=== PATIENT | female | born 1950 | race African-American/Black ===

== ENCOUNTER 2016-08-03 13:58 | Emergency (ER) | payer MEDICARE, MEDICAID ==
--- NOTE | 2016-08-03 14:15 | ED Physician Chart ---
Chief Complaint/HPI - Patient Information Date Seen:: 08/03/16 Time Seen:: 14:00 Chief Complaint:: dyspnea History of Present Illness:: onset today of dyspnea; pt reportedly developed low Oxygen Saturations and thus was brought in by EMS for further evaluation; pt denies C/P, SOB, Abd pain, A/N/ V/D/C, fever, chills,congestion, cough, hemoptysis, neck pain, or H/As Vitals:: Vital Signs - 8 hr 08/03/16 08/03/16 14:01 14:09 Temp 98.6 F HR 80 RR 19 BP 125/72 125/72 O2 Sat % 93 Historian:: Patient, EMS, Medical Records Review:: Nurse's Note Reviewed, EMS run form Reviewed, Transfer documents Reviewed Review of Systems - Review of Systems General/Constitutional: Fever, Chills, No weight loss, Weakness, No diaphoresis , No edema, No loss of appetite Skin: No skin lesions, No rash, No bruising Head: Headache, No light-headedness Eyes: No loss of vision, No pain, No diplopia ENT: No earache, Nasal drainage, No sore throat, No tinnitus Neck: No neck pain, No swelling, No thyromegaly, No stiffness, No mass noted Cardio Vascular: Chest pain, Palpitations, No PND, No orthopnea, No edema Pulmonary: SOB, Cough, No sputum, No wheezing GI: No nausea, No vomiting, No diarrhea, No pain, No melena, No hematochezia, No constipation, No hematemesis G/U: No dysuria, No frequency, No hematuria Musculoskeletal: Bone or joint pain, No back pain, Muscle pain Endocrine: No polyuria, No polydipsia Psychiatric: Prior psych history, Depression, No anxiety, No suicidal ideation Hematopoietic: No bruising, No lymphadenopathy Allergic/Immuno: No urticaria, No angioedema Neurological: No syncope, No focal symptoms, No weakness, No paresthesia, No headache, No seizure, No dizziness, No confusion, No vertigo Past Medical History - Past Medical History Past Medical History: HTN, DM, CAD, Dyslipidemia, PUD/GERD, Seizures Family History: Heart disease, Diabetes Melitus, HTN Social History: Non Smoker, No Alcohol, No Drug Use, Single, Care Facility Surgical History: None Psychiatricy History: Depression, Bipolar Medication: Reviewed Family Medical History - Family Member Mother History Unknown: Yes Physical Exam - Physical Examination General/Constitutional: Awake, Well-developed, well-nourished, Alert, No distress, GCS 15, Non-toxic appearing, Ambulatory Head: Atraumatic Eyes: Lids, conjuctiva normal, PERRL, EOMI Skin: Nl inspection, No rash, No skin lesions, No ecchymosis, Well hydrated, No lymphadenopathy ENMT: External ears, nose nl, Nasal exam nl, Lips, teeth, gums nl Neck: Nontender, Full ROM w/o pain, No JVD, No nuchal rigidity, No bruit, No mass, No stridor Respiratory: Nl effort/Exclusion, No Wheeze/Rhonchi/Rales Other Respiratory comments:: Lungs: + Rhonchi Cardio Vascular: RRR, No murmur, gallop, rubs, NL S1 S2 GI: No tenderness/rebounding/guarding, No organomegaly, No hernia, Normal BS's, Nondistended, No mass/bruits, No McBurney tenderness : No CVA tenderness Extremities: No tenderness or effusion, Full ROM, normal strength in all extremities, No edema, Normal digits & nails Neuro/Psych: Alert/oriented, DTR's symmetric, Normal sensory exam, Normal motor strength, Judgement/insight normal, Mood normal, Normal gait, No focal deficits Misc: normal gait, Normal back, No paraspinal tenderness Labs/Radiology/EKG Results - Lab Results Results: Unremarkable - Radiology Results Results: CXR: Old RML Infiltrate - EKG Interpretations Rate & Rhythm: NSR; PRO [place]: LAD Comments:: non-specific st-t changes ED Septic Shock - . Is Septic Shock (SBP<90, OR Lactate>4 mmol\L) present?: No - <6hrs of presentation: Vital Signs: Vital Signs - 8 hr 08/03/16 08/03/16 14:01 14:09 Temp 98.6 F HR 80 RR 19 BP 125/72 125/72 O2 Sat % 93 Reassessment (Disposition) - Reassessment Reassessment Condition:: Improved - Diagnosis Diagnosis:: Pneumonia; Dyspnea-Resolved; Hypoxia-resolved - Aftercare/Follow up Instructions Aftercare/Follow-Up Instructions:: Counseled pt regarding lab results/diagnosis & need follow up, Refer to Discharge Instructions, Counseled pt & family regarding lab results/diagnosis & need follow up Notes:: pt refused to be admitted; pt chose to sign out AMA - Patient Disposition Discharge/Transfer:: Against Medical Advice (RTER prn if existing s/s reoccur and/or get worse and/or any other new s/s occur; Continue Antibiotics and all medications as prescribed by PMD; F/U with PMD today or prn; ACIS given for all above Dx; Refer to [employer] [facility]; RTER prn if concerned) ED Discharge Plan - Patient Disposition Admit/Discharge/Transfer: [facility] Condition at Disposition: Stable Instructions: Pneumonia, Adult, [id number]
[2016-08-03 14:41] VITALS: BP 125/72
[2016-08-03 14:50] LABS: % EOSINOPHILS 0.9 % (0.0-5.0); % LYMPHOCYTES 39.8 % (20.0-50.0); % MONOCYTES 14.2 % (2.0-10.0); % NEUTROPHILS 45.1 % (40.0-80.0); HEMATOCRIT 48.3 % (35.0-45.0); HEMOGLOBIN 15.2 gm/dL (11.7-16.1); MEAN CELL VOLUME 91.6 fl (81-100); MEAN CORPUSCULAR HEMOGLOBIN 28.7 pg (27.0-31.0); MEAN CORPUSCULAR HGB CONC 31.4 pg (28.0-36.0); MEAN PLATELET VOLUME 9.1 fl; NEUTROPHILE ABSOLUTE 3.1 Th/cmm (1.8-8.0); PLATELET COUNT 212 Th/cmm (150-400); RED BLOOD COUNT 5.28 Mil/cmm (3.80-5.20); RED CELL DISTRIBUTION WIDTH 15.6 % (11.5-20.0); WHITE BLOOD COUNT 6.9 Th/cmm (4.8-10.8)
[2016-08-03 14:55] LABS: INR 1.07 (0.5-1.4); PROTHROMBIN TIME (TEST) 11.1 SECONDS (9.5-11.5)
[2016-08-03 14:59] LABS: ALB/GLOB RATIO 0.8 (1.0-1.8); ALKALINE PHOSPHATASE 65 U/L (34-104); ANION GAP 6.8 (7.0-16.0); BILIRUBIN,TOTAL 0.5 mg/dL (0.3-1.0); BUN - UREA NITROGEN 29 mg/dL (7-25); BUN/CREATININE RATIO 26.4; CALCIUM SERUM 9.8 mg/dL (8.6-10.3); CARBON DIOXIDE 38.8 mEq/L (21.0-31.0); CHLORIDE 97 mEq/L (98-107); CHOLESTEROL 139 mg/dL (<200); CREATININE - SERUM 1.1 mg/dL (0.6-1.2); GLUCOSE 115 mg/dL (70-105); POTASSIUM SERUM 3.6 mEq/L (3.5-5.1); SGOT 25 U/L (13-39); SGPT/ALT 36 U/L (7-52); SODIUM SERUM 139 mEq/L (136-145); TRIGLYCERIDES 124 mg/dL (<150); TROP I 0.03 ng/mL (0.01-0.05)
[2016-08-03] MEDS ORDERED: Levofloxacin 500mg/100mL 500 MG/100 ML BAG IV ONE (16:29)
--- NOTE | 2016-08-04 10:17 | Diagnostic Imaging Report ---
Portable chest x-ray HISTORY: Pain The heart appears enlarged. No focal pulmonary processes. No hilar or mediastinal abnormalities. Diffuse degenerative changes are seen to the spine. IMPRESSION: 1. No acute pulmonary processes 2. Cardiomegaly
== END 2016-08-03 18:30 ==
LOC: ER 13:58
DX: J18.9 Pneumonia, unspecified organism (principal); R09.02 Hypoxemia; I10 Essential (primary) hypertension; E11.9 Type 2 diabetes mellitus without complications; I25.10 Atherosclerotic heart disease of native coronary artery without angina pectoris; K21.9 Gastro-esophageal reflux disease without esophagitis; E78.5 Hyperlipidemia, unspecified; F31.9 Bipolar disorder, unspecified
CPT/HCPCS: 36415-UA; 71010-TC; 80053-TC; 80061-TC; 80164-TC; 82550-TC; 83880-TC; 84484-TC; 85025-TC; 85610-TC; 93005